=== PATIENT | female | born 1995 | race American Indian/Alaskan Native ===

== ENCOUNTER 2017-12-11 11:08 | Emergency (ER) | payer BC ==
[2017-12-11 11:08] VITALS: BMI 21.2
[2017-12-11 11:20] VITALS: TEMP 98.9; O2SAT 99
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
[2017-12-11 13:46] VITALS: BP 123/88; PULSE 68; RESP 17
== END 2017-12-11 13:55 | disposition home or self-care (01) ==
LOC: ED 11:08
DX: S09.90XA Unspecified injury of head, initial encounter (principal); Y08.89XA Assault by other specified means, initial encounter; Y92.89 Other specified places as the place of occurrence of the external cause; Y99.0 Civilian activity done for income or pay